=== PATIENT | male | born 1990 | race Two or more races ===

== ENCOUNTER 2018-04-19 | Emergency (ER) | payer OTHER ==
[~2018-04-19] VITALS: Ht 177.8 cm; Wt 79.4 kg
[2018-04-19] MEDS ORDERED: PANADOL EXTRA500 MG (01:10)
[2018-04-19] MEDS ORDERED: PYRIDIUM DS200 MG PO (04:57)
[2018-04-19] MEDS ORDERED: BACTRIM DS TAB1 EACH PO (04:57)
== END 2018-04-19 14:07 ==
LOC: ER
DX: N39.0 Urinary tract infection, site not specified (principal)

== ENCOUNTER 2018-04-20 01:28 | Inpatient (IN) | payer OTHER ==
[~2018-04-20] VITALS: Ht 177.8 cm; Wt 79.4 kg
[~2018-04-20 01:28] MED LIST: BACTRIM DS TAB1 EACH PO; PANADOL EXTRA500 MG; PYRIDIUM DS200 MG PO
[2018-04-21] MEDS ORDERED: DOXYCYCLINE HY100 MG PO (09:51)
[2018-04-21] MEDS ORDERED: TYLENOL325 MG PO (09:52)
== END 2018-04-21 13:10 | disposition left against medical advice (07) | DRG 690 ==
LOC: ER 01:28 → SEC-K 08:55 → SURG 21:39
PROC: BW21ZZZ Computerized Tomography (CT Scan) of Abdomen and Pelvis (ICD-10-PCS; principal; 2018-04-20)
PROC: BV44ZZZ Ultrasonography of Scrotum (ICD-10-PCS; 2018-04-20)
DX: N39.0 Urinary tract infection, site not specified (principal); R50.9 Fever, unspecified